=== PATIENT | female | born 1955 | race Caucasian/White ===

== ENCOUNTER → 2016-12-28 | Outpatient (CLI) | payer OTHER ==
[~2016-12-28] MED LIST: ASPIRIN325 MG PO; CIPRO500 MG PO; FLOMAX0.4 MG PO; LITE COAT ASPI325 M1 PO; NAPROXEN500 MG PO; NORCO 5/3251 TABLET PO; OTEZLA30 MG PO; ZOFRAN4 MG PO
== END | disposition home or self-care (01) ==
LOC: RES 11:00
DX: J20.9 Acute bronchitis, unspecified (principal); R05 Cough
CPT/HCPCS: 94060; 94727

== ENCOUNTER 2017-04-13 06:51 | Emergency (ER) | payer OTHER ==
[~2017-04-13] VITALS: Ht 154.9 cm; Wt 75.5 kg
[2017-04-13 06:53] VITALS: BP 159/100
[2017-04-13] MEDS ORDERED: ZITHROMAX Z-PA250 MG PO (07:12)
== END 2017-04-13 07:35 | disposition home or self-care (01) ==
LOC: EME 06:51
DX: J02.9 Acute pharyngitis, unspecified (principal); J20.9 Acute bronchitis, unspecified; Z79.82 Long term (current) use of aspirin; F17.200 Nicotine dependence, unspecified, uncomplicated
CPT/HCPCS: 99281; 99283

== ENCOUNTER 2017-05-28 13:40 | Day surgery (SDC) | payer OTHER ==
[~2017-05-28] VITALS: Ht 154.9 cm; Wt 73.9 kg
[~2017-05-28 13:40] MED LIST changes: +NIZORAL 2% CREA15 GM TP; +TEMOVATE 0.05%60 GM TP; +VITAMIN B COMP1 EACH PO; +VITAMIN C500 M1 PO; +ZITHROMAX Z-PA250 MG PO
== END 2017-05-28 16:07 | disposition home or self-care (01) ==
LOC: PAIN 13:40 → SDC 14:15 → PAIN 14:15
DX: M47.812 Spondylosis without myelopathy or radiculopathy, cervical region (principal); M54.2 Cervicalgia; G89.29 Other chronic pain; E78.5 Hyperlipidemia, unspecified; M47.816 Spondylosis without myelopathy or radiculopathy, lumbar region; F17.210 Nicotine dependence, cigarettes, uncomplicated; E66.3 Overweight; Z68.30 Body mass index [BMI] 30.0-30.9, adult
CPT/HCPCS: J1030; J2250; J3010; S0020

== ENCOUNTER 2017-07-23 06:46 | Day surgery (SDC) | payer OTHER ==
[~2017-07-23] VITALS: Ht 154.9 cm; Wt 73.9 kg
[~2017-07-23 06:46] MED LIST changes: +VITAMIN E200 UNI2 PO
== END 2017-07-23 08:55 | disposition home or self-care (01) ==
LOC: PAIN 06:46 → SDC 07:30 → PAIN 07:30
PROC: BR141ZZ Fluoroscopy of Cervical Facet Joint(s) using Low Osmolar Contrast (ICD-10-PCS; principal; 2017-07-23)
PROC: 3E0T3TZ Introduction of Destructive Agent into Peripheral Nerves and Plexi, Percutaneous Approach (ICD-10-PCS; principal; 2017-07-23)
DX: M47.812 Spondylosis without myelopathy or radiculopathy, cervical region (principal); M54.2 Cervicalgia; G89.29 Other chronic pain; E78.5 Hyperlipidemia, unspecified; M47.816 Spondylosis without myelopathy or radiculopathy, lumbar region; F17.200 Nicotine dependence, unspecified, uncomplicated; Z79.82 Long term (current) use of aspirin
CPT/HCPCS: J1030; J2250; J3010; S0020

== ENCOUNTER 2017-11-01 23:16 | Emergency (ER) | payer OTHER ==
[~2017-11-01] VITALS: Ht 154.9 cm; Wt 68.6 kg
[2017-11-01 23:40] LABS: HEMATOCRIT 52.4 % (36.0-46.0); HEMOGLOBIN 17.8 G/DL (11.9-15.5); MCH 33.1 PG (29.0-34.0); MCV 97.6 FL (83-99); PLATELET COUNT 285 K/uL (156-360); RBC DIS.WIDTH-CV 12.2 % (11.8-14.6); RBC DIS.WIDTH-SD 43.9 % (39-53); RED BLOOD COUNT 5.37 M/uL (3.80-5.20); WHITE BLOOD COUNT 13.4 K/uL (4.1-10.2)
[2017-11-02 00:01] LABS: PTT 31.9 SEC (25-37)
[2017-11-02 00:03] LABS: ALBUMIN 4.4 g/dL (3.2-4.8); CHLORIDE 105 mEq/L (99-109); POTASSIUM 3.9 mEq/L (3.7-5.4); SODIUM 141 mEq/L (136-147)
[2017-11-02 00:04] LABS: MAGNESIUM 2.4 mg/dL (1.3-2.7)
[2017-11-02 00:05] LABS: GLUCOSE 154 mg/dL (70-99); TOTAL PROTEIN 7.3 g/dL (6.4-8.3)
[2017-11-02 00:07] LABS: TOTAL BILIRUBIN 0.5 mg/dL (0.0-1.0)
[2017-11-02 00:09] LABS: ALKALINE PHOSPHATASE 71 IU/L (3-129); CREATININE 0.8 mg/dL (0.6-1.3); GFR ESTIMATE (CALCULATED) > 59 mL/min/
[2017-11-02 00:10] LABS: APPEARANCE CLOUDY ((CLEAR)); BILIRUBIN NEGATIVE; BLOOD MODERATE; COLOR YELLOW ((YELLOW)); GLUCOSE (STRIP) NEGATIVE; KETONES NEGATIVE; LEUKOCYTES LARGE; NITRITE NEGATIVE; PROTEIN (STRIP) 30; SPECIFIC GRAVITY 1.029 (1.000-1.030)
[2017-11-02 00:11] LABS: AST (GOT) 20 IU/L (2-34)
[2017-11-02 00:12] LABS: ALT (GPT) 21 IU/L (3-49); LIPASE 11 U/L (1.0-51.0)
[2017-11-02 00:28] LABS: UREA NITROGEN (BUN) 20 mg/dL (9-23)
[2017-11-02 00:34] LABS: BACTERIA 1+ /HPF; CALCIUM OXALATE CRYSTALS 4+ /HPF; EPITHELIAL CELLS 2+ /HPF; MUCUS 4+ /LPF; RED BLOOD CELLS 40-50 /HPF (0-5); UCUL ADDED? YES; WHITE BLOOD CELLS 30-40 /HPF (0-5)
[2017-11-02] MEDS ORDERED: KEFLEX500 MG PO (04:17)
[2017-11-02] MEDS ORDERED: MOTRIN600 MG PO (04:17)
[2017-11-02] MEDS ORDERED: ZOFRAN ODT4 MG PO (04:20)
[2017-11-02 04:26] VITALS: BP 131/81
== END 2017-11-02 04:40 | disposition home or self-care (01) ==
LOC: EME 23:16
PROVIDERS: Emergency Medicine
DX: N13.2 Hydronephrosis with renal and ureteral calculous obstruction (principal); N39.0 Urinary tract infection, site not specified; Z87.442 Personal history of urinary calculi; F17.200 Nicotine dependence, unspecified, uncomplicated; Z79.82 Long term (current) use of aspirin
CPT/HCPCS: 74176; 80048; 80053; 81003; 83690; 83735; 85027; 85610; 85730; 87086; 99281; 99285; J0696; J1885; J2270; J2405; J7040; J7050